=== PATIENT | male | born 1950 | race Caucasian/White ===

== ENCOUNTER 2018-05-22 09:51 | Day surgery (SDC) | payer MEDICARE ==
--- NOTE | 2018-05-22 09:17 | HP ---
DATE OF SURGERY: 05/22/2018 HISTORY OF PRESENT ILLNESS: The patient is a 67 year-old who has pain left inguinal area for a few months, slight bulge. It was felt he had left inguinal hernia. It was felt that he would benefit from repair. PAST MEDICAL HISTORY: Hypercholesterolemia. PAST SURGICAL HISTORY: Strangulated diaphragmatic hernia. Diaphragmatic hernia repair with mesh. Chest tube placement. Right colectomy with primary low transverse colonic anastomosis in 2011. He had colonoscopy in the past. MEDICATIONS: B12, Lipitor, multivitamins, potassium, turmeric, I-Caps, Co-Q10, cinnamon, glucosamine chondroitin, aspirin, omega3-fish oil, Prostate Health caplet. ALLERGIES: NKDA. FAMILY HISTORY: Negative in regards to this problem. SOCIAL HISTORY: No smoking or alcohol abuse. REVIEW OF SYSTEMS: Twelve systems reviewed. No chest pain or palpitations other systems negative or noncontributory as above and per preadmission questionnaire. PHYSICAL EXAMINATION: GENERAL: No acute distress. HEENT: Sclerae nonicteric. NECK: No JVD. CHEST: Equal excursion, nonlabored breathing. CVS: Regular rate and rhythm. ABDOMEN: Soft. No peritoneal signs. Left inguinal hernia palpable on exam. EXTREMITIES: No significant edema. NEURO: Alert, moving extremities symmetrically. IMPRESSION: Left inguinal hernia. I feel he would benefit from repair. He has had some major abdominal surgeries in the past. I feel it would be better to proceed with open repair. He was shown the risk sheet, explained the procedure in detail but not limited to bleeding or infection, risk of ingrown hair or suture reaction, risk of swelling or firmness around incision, risk of hematoma or seroma formation, risk of black, blue and bruising possibly extending down to the base of penis or down towards the scrotum. Risk if the mesh became infected would need to be removed, overall risk of hernia recurrence. General risk of aches, pains, burning, numbness lower abdomen, groin, thigh or scrotal area possibly chronic 10 to 12% chance, possibly interfering with sexual function from aches and pain standpoint, possible high risk of intermittent ache or twinge, general risk of anesthesia, deep venous thrombosis, pulmonary embolism, pneumonia but not limited to and overall risk of hernia recurrence. He understands and agrees to the planned procedure and will proceed with open repair left inguinal hernia repair with mesh as an outpatient.
[~2018-05-22 09:51] MED LIST: CEFAZOLIN 2 GM-D5W BAG** 2 GM/50 ML ML IV SCH; Lactated Ringers 1,000 ML IV ONE; Lactated Ringers 1,000 ML IV SCH; Sensorcaine 0.25% 10 ML ONE
[2018-05-22] MEDS ORDERED: Lactated Ringers 1,000 ML IV ONE (10:28)
[2018-05-22] MEDS ORDERED: CEFAZOLIN 2 GM-D5W BAG** 2 GM/50 ML ML IV ONE (10:29)
[2018-05-22] MEDS ORDERED: SUBLIMAZE 100 MCG/2 ML IV ONE ×2 (16:24→16:42)
[2018-05-22] MEDS ORDERED: DILAUDID 2 MG INJECTION ONE (16:26)
[2018-05-22] MEDS ORDERED: DILAUDID 2 MG INJECTION IV ONE (16:30)
[2018-05-22] MEDS ORDERED: SUBLIMAZE 100 MCG/2 ML ONE (16:31)
[2018-05-22] MEDS ORDERED: Zemuron 100 MG/10 ML IV ONE (16:42)
[2018-05-22] MEDS ORDERED: TORAdol 30 mg Injection IV ONE (16:42)
[2018-05-22] MEDS ORDERED: Naropin 0.5% 30 ML VIAL IJ ONE (16:42)
[2018-05-22] MEDS ORDERED: DIPRIVAN 200 MG/20 ML IV ONE (16:42)
[2018-05-22] MEDS ORDERED: Decadron 4 MG INJ IV ONE (16:42)
[2018-05-22] MEDS ORDERED: Quelicin Fliptop 200 MG/10 ML IV ONE (16:42)
[2018-05-22] MEDS ORDERED: Zofran 4 MG/2 ML VIAL IV ONE (16:42)
[2018-05-22 17:04] VITALS: BP 144/78; PULSE 69; O2SAT 100
--- NOTE | 2018-05-23 08:55 | OP ---
SURGERY DATE/TIME: 05/22/2018 1350 PREOPERATIVE DIAGNOSIS: Left inguinal hernia. POSTOPERATIVE DIAGNOSIS: Left inguinal hernia including small lateral cord lipoma. PROCEDURES: 1) Repair left inguinal hernia with mesh. 2) Excision of small lateral cord lipoma. SURGEON: Dr. Von Jin. [employer]: Halina Shine, Medical Student III. ANESTHESIA: General. ESTIMATED BLOOD LOSS: Minimal. INDICATIONS: As noted above. Risks and benefits explained in detail and not limited to and consent obtained. The site was confirmed and marked in the preoperative holding area. DESCRIPTION OF PROCEDURE AND FINDINGS: Taken to the operating room. General anesthesia was induced. Groin and abdomen were prepped and draped in the usual sterile fashion. After official time out and no disagreement with planned procedure, a transverse incision made left inguinal area. Dissection carried down through a moderate amount of subcutaneous fat. Small, little inferior epigastric vein was clamped, divided and ligated with Vicryl tie. Dissection carried down through Kaylene fascia, external oblique with very weak and attenuated tissue. It was opened with the cord gently mobilized up off the pubic tubercle with Manzanola drain. Therefore protecting the visible ilioinguinal nerve and hypogastric nerve branches. The Cremasteric fibers . It was evident that the patient had very small lateral cord lipoma that was away from the cord and ligated with Vicryl suture ligature and passed off. The fat was intertwined within the cord vessels and it was felt not warranted to remove but the separate cord lipoma had been , clamped and passed off. Ligated with 3-0 Vicryl suture ligature. Carefully Cremasteric fibers there is no evidence of any significant indirect hernia sac however there is a very large indirect hernia component basically the entire inguinal floor had no consistency or integrity, this was carefully reduced back down in the abdomen with interrupted 0 PDS imbricating downward in a tension-free manner up to a normal size internal ring. Good hemostasis is noted. It was felt he would benefit from mesh repair. A 2 x 4 piece of mesh cut to appropriate dimensions with keyhole cut secured to the fascia overlying pubic tubercle with 0 Prolene run along Davey's ligament along the shelving portion of the ilioinguinal ligament and lateral past the internal ring with 0 Prolene. 0 Prolene used to transfix to the rectus fascia medially. 0 Vicryl was used to transfix to the aponeurosis internal oblique superiorly avoiding the visible branches of the iliohypogastric nerve. Tails of the mesh were lying laterally to the internal ring, lateral tails secured together with 0 Prolene. Lateral tails of the mesh lying nice and flat in external oblique. Mesh is in good position. The new internal ring was felt to be not too tight. Good hemostasis noted. Visible iliohypogastric ilioinguinal nerve branches carefully protected. Copious amount of irrigation irrigating until clear. Good hemostasis noted. The very attenuated external oblique was reapproximated with running 0 Vicryl. Back towards the external ring good hemostasis noted. Kaylene closed with 3-0 Vicryl. Subcu closed with 3-0 Vicryl. Skin closed with 4-0 Vicryl. Steri-Strips and sterile dressing applied. 0.25% Marcaine local had been injected along the skin incision back towards the origin of the inguinal area back towards the anterior iliac spine. It should be noted that anesthesia did a tap block prior to the procedure. The patient tolerated the procedure well. There were no immediate complications. Findings discussed with the family out in the waiting area. Given his quite weak tissue in the area it is felt he is at moderate risk of recurrence. It was felt this is the best repair possible at this junction.
== END 2018-05-22 17:16 | disposition home or self-care (01) ==
LOC: SDC 09:51
PROVIDERS: ATTEND Surgery
DX: D17.6 Benign lipomatous neoplasm of spermatic cord (principal); E78.00 Pure hypercholesterolemia, unspecified; Z79.899 Other long term (current) drug therapy
CPT/HCPCS: 64486; 76937; 76942; 88304; 94250; C1781; J0330; J0690; J1100; J1170; J1885; J2405; J2704; J2795; J3010